=== PATIENT | male | born 1990 | race Two or more races ===

== ENCOUNTER 2018-03-15 14:33 | Emergency (ER) | payer SELFPAY ==
[~2018-03-15] VITALS: Ht 182.9 cm; Wt 86.2 kg
--- NOTE | 2018-03-15 15:02 | Emergency Room Report ---
History of Present Illness General Chief Complaint: Abdominal Pain Present Illness HPI Patient is a 20-year-old male who presents today with complaints of abdominal pain began an hour ago. He states the pain began after eating a burger. He states pain is currently 9 out of 10 severity and he has been taking Bentyl with no relief. States pain is currently epigastric and nonradiating. He denies any nausea, vomiting or cystitis symptoms. He has no significant medical problems and admits to drinking alcohol. Allergies: Coded Allergies: No Known Allergies (Unverified , 03/15/18) Patient History Reviewed Nursing Documentation: PMH: Agreed; PSxH: Agreed Review of Systems Gastrointestinal: Reports: abdominal pain All Other Systems: negative except mentioned in HPI Physical Exam Vital Signs Date Time Temp Pulse Resp B/P (MAP) Pulse Ox O2 Delivery O2 Flow Rate FiO2 03/15/18 14:27 97.8 60 20 150/95 100 97.9 Sp02 EP Interpretation: reviewed, normal General Appearance: no apparent distress, alert, GCS 15, non-toxic Head: normocephalic, atraumatic Eyes: bilateral eye normal inspection, bilateral eye PERRL ENT: hearing grossly normal, normal pharynx, no angioedema, normal voice Neck: full range of motion, supple/symm/no masses Respiratory: chest non-tender, lungs clear, normal breath sounds, speaking full sentences Cardiovascular #1: regular rate, rhythm, no edema Cardiovascular #2: 2+ carotid (R), 2+ carotid (L), 2+ radial (R), 2+ radial (L) , 2+ dorsalis pedis (R), 2+ dorsalis pedis (L) Gastrointestinal: normal bowel sounds, soft, non-distended, no guarding, no rebound, other - epigastric tenderness to palpation Rectal: deferred Genitourinary: normal inspection, no CVA tenderness Musculoskeletal: back normal, gait/station normal, normal range of motion, non- tender, calf tenderness Neurologic: alert, oriented x3, responsive, motor strength/tone normal, sensory intact, speech normal Psychiatric: judgement/insight normal, memory normal, mood/affect normal, no suicidal/homicidal ideation Reflexes: 3+ bicep (R), 3+ bicep (L), 3+ tricep (R), 3+ tricep (L), 3+ knee (R) , 3+ knee (L) Skin: normal color, no rash, warm/dry, well hydrated Lymphatic: no adenopathy Medical Decision Making PA Attestation Supervising physician is Dr. Nicole Reaction to Intervention: Improved Diagnostic Impression: Primary Impression: Epigastric abdominal pain ER Course Patient is a 28-year-old male who presents today with complaints of epigastric abdominal pain. Ultrasound is within normal limits, no evidence of cholelithiasis or cholecystitis. Patient has a mildly elevated T bili, however all other LFTs are within normal limits. Multiple re-evaluations made, patient states the pain is improving with medication. Abdomen is soft and nontender on reevaluation. Isn't able tolerate by mouth fluids without difficulty. Discussed case with Dr. nicole who agreed with disposition. Discharged home with PPI and instructed to follow up with PCP for further evaluation and management. Patient understands and is agreeable with plan. Reevaluation Time: 17:24 Last Vital Signs Date Time Temp Pulse Resp B/P (MAP) Pulse Ox O2 Delivery O2 Flow Rate FiO2 03/15/18 14:27 97.8 60 20 150/95 100 97.9 Status: improved Disposition: HOME, SELF-CARE Condition: Stable Scripts Omeprazole (OMEPRAZOLE) 40 Mg Capsule. 40 MG ORAL DAILY, #20 CAP Prov: Vivi Ibrahim 03/15/18 Patient Instructions: Abdominal Pain, Adult Vivi Ibrahim Mar 15, 2018 15:02
[2018-03-15 15:10] LABS: BASOPHILS % (AUTO) 0.7 % (0.0-2.0); EOSINOPHILS % (AUTO) 0.7 % (0.0-3.0); HEMATOCRIT 45.2 % (42.0-52.0); LYMPHOCYTES % (AUTO) 29.8 % (20.0-45.0); MEAN CORPUSCULAR VOLUME 96 FL (80-99); MONOCYTES % (AUTO) 4.3 % (1.0-10.0); NEUTROPHILS % (AUTO) 64.5 % (45.0-75.0); PLATELET COUNT 223 K/UL (150-450); RED BLOOD COUNT 4.73 M/UL (4.70-6.10); RED CELL DISTRIBUTION WIDTH 12.1 % (11.6-14.8); WHITE BLOOD COUNT 10.8 K/UL (4.8-10.8)
[2018-03-15 15:36] LABS: ANION GAP 10 mmol/L (5-15); BLOOD UREA NITROGEN 10 mg/dL (7-18); CALCIUM 9.6 MG/DL (8.5-10.1); CARBON DIOXIDE 30 MMOL/L (21-32); CHLORIDE 101 MMOL/L (98-107); CREATININE 1.5 MG/DL (0.55-1.30); POTASSIUM 3.4 MMOL/L (3.5-5.1); SODIUM 140 MMOL/L (136-145)
[2018-03-15] MEDS ORDERED: Morphine Sulfate 4mg/ml Inj IM ONE (15:45)
[2018-03-15 15:46] LABS: ALANINE AMINOTRANSFERASE 29 U/L (12-78); ALBUMIN 4.4 G/DL (3.4-5.0); ALBUMIN/GLOBULIN RATIO 1.2 (1.0-2.7); ALKALINE PHOSPHATASE 68 U/L (46-116); ASPARTATE AMINO TRANSFERASE 22 U/L (15-37); BILIRUBIN,TOTAL 1.5 MG/DL (0.2-1.0)
[2018-03-15 15:47] LABS: BILIRUBIN,DIRECT 0.2 MG/DL (0.0-0.3)
[2018-03-15 17:08] VITALS: BP 150/95
[2018-03-15 17:16] VITALS: BP 142/89
[2018-03-15] MEDS ORDERED: CEPHALEXIN500 MG ORAL (17:21)
[2018-03-15] MEDS ORDERED: OMEPRAZOLE40 M1 ORAL (17:22)
--- NOTE | 2018-03-16 08:32 | Diagnostic Imaging Report ---
Indication: Epigastric pain, abnormal liver function tests, abnormal renal function tests Technique: Piña-scale and duplex images of the upper abdomen were obtained Comparison: none Findings: Gallbladder is unremarkable, without stones, wall thickening, nor pericholecystic fluid. Sonographic Mayo's sign is negative. Common bile duct measures 6 mm in diameter. No intrahepatic biliary ductal dilatation. Liver demonstrates normal echogenicity, no focal abnormality. Portal vein and hepatic veins are patent. Pancreas is unremarkable. Spleen is unremarkable. Left kidney measures 10.9 cm in length. Right kidney measures 10.7 cm length. Both kidneys demonstrate normal echogenicity. There is no hydronephrosis. No focal abnormality . Non-aneurysmal abdominal aorta . Impression: Negative This agrees with the preliminary interpretation provided overnight by [facility] teleradiology service.
== END 2018-03-15 17:55 | disposition home or self-care (01) ==
LOC: EDBD 14:33 → EMR 15:00
DX: R10.13 Epigastric pain (principal)
CPT/HCPCS: 36415; 76700; 80053; 82248; 83690; 85025; 96372; 99283; J2270